=== PATIENT | male | born 1970 | race African-American/Black ===

== ENCOUNTER 2020-06-16 05:01 | Emergency (ER) | payer OTHER ==
[~2020-06-16] VITALS: Ht 180.3 cm; Wt 86.2 kg
[2020-06-16] MEDS ORDERED: AVAPRO300 MG PO (05:08)
== END 2020-06-16 05:53 | disposition home or self-care (01) ==
LOC: ER 05:01
DX: S62.633A Displaced fracture of distal phalanx of left middle finger, initial encounter for closed fracture (principal); W22.8XXA Striking against or struck by other objects, initial encounter; Y93.89 Activity, other specified; Y92.89 Other specified places as the place of occurrence of the external cause; Y99.8 Other external cause status

== ENCOUNTER 2023-01-16 20:52 | Emergency (ER) | payer OTHER ==
[~2023-01-16] VITALS: Ht 180.3 cm; Wt 87.1 kg
[~2023-01-16 20:52] MED LIST: AVAPRO300 MG PO
[2023-01-16] MEDS ORDERED: IRBESARTAN300 MG PO (21:06)
[2023-01-16] MEDS ORDERED: CLONAZEPAM0.5 MG PO (21:06)
== END 2023-01-16 23:33 | disposition home or self-care (01) ==
LOC: ER 20:52
DX: R07.9 Chest pain, unspecified (principal)